=== PATIENT | male | born 1945 | race Caucasian/White ===

== ENCOUNTER → 2016-12-12 | Outpatient (CLI) | payer OTHER ==
[~2016-12-12] MED LIST: ASPEC81 PO; MEDLIST; METO50TA7 PO; SIMV20TA2 PO
[2016-12-12 10:45] LABS: BLOOD UREA NITROGEN 16 mg/dl (7-18); BUN/CREATININE RATIO 14.3 (10-20); CALCIUM 8.9 mg/dl (8.5-10.1); CARBON DIOXIDE 25 mmol/L (21-32); CHLORIDE 109 mmol/L (98-107); CHOLESTEROL 191 mg/dl (0-200); GLUCOSE 107 mg/dl (70-99); POTASSIUM 3.9 mmol/L (3.5-5.1); SODIUM 143 mmol/L (136-145); TRIGLYCERIDES 150 mg/dl (0-150); VERY LOW DENSITY LIPOPROT CALC 30 mg/dl
[2016-12-12 10:48] LABS: CHOLESTEROL/HDL RATIO 4.3; HDL CHOLESTEROL 44 mg/dl; LDL CHOLESTEROL CALCULATED 117 mg/dl
== END | disposition home or self-care (01) ==
LOC: C.LAB 09:06
PROVIDERS: ATTEND Internal Medicine Cardiovascular Disease
DX: I48.0 Paroxysmal atrial fibrillation (principal); I49.3 Ventricular premature depolarization

== ENCOUNTER → 2017-07-29 | Outpatient (CLI) | payer OTHER ==
[~2017-07-29] MED LIST changes: -METO50TA7 PO; +METO50TA8 PO
[2017-07-29 16:34] LABS: BASO % 0.7 %; BASO ABS # 0.04 K/uL (0-0.2); EOS % 9.1 %; EOS ABS # 0.53 K/uL (0-0.5); HEMATOCRIT 46.1 % (42-52); IG# 0.02 K/uL (0.00-0.02); LYMPH % 32.8 %; MEAN CELL VOLUME 92.9 fL (80-100); MEAN CORPUSCULAR HEMOGLOBIN 30.2 pg (25-34); MEAN CORPUSCULAR HGB CONC 32.5 g/dl (32-36); MEAN PLATELET VOLUME 11.4 fL (7.4-10.4); MONO % 10.3 %; NEUT % 46.8 %; NEUT ABS # 2.71 K/uL (1.4-6.5); PLATELET COUNT 171 K/uL (130-400); RED CELL DISTRIBUTION WIDTH SD 43.8 fL (36.4-46.3)
[2017-07-29 16:43] LABS: ALBUMIN 3.8 gm/dl (3.4-5.0); ALT/SGPT 34 U/L (12-78); AST/SGOT 21 U/L (15-37); BLOOD UREA NITROGEN 16 mg/dl (7-18); CALCIUM 9.3 mg/dl (8.5-10.1); CARBON DIOXIDE 26 mmol/L (21-32); CHOLESTEROL 207 mg/dl (0-200); CREATININE 1.06 mg/dl (0.60-1.40); GLUCOSE 90 mg/dl (70-99); POTASSIUM 4.1 mmol/L (3.5-5.1); SODIUM 139 mmol/L (136-145)
[2017-07-29 16:46] LABS: ALKALINE PHOSPHATASE 76 U/L (45-117); LDL CHOLESTEROL (DIRECT) 136 mg/dl
[2017-07-29 16:50] LABS: HEMOGLOBIN A1C 5.9 % (4.5-5.6)
== END | disposition home or self-care (01) ==
LOC: C.LAB 16:18
PROVIDERS: ATTEND Internal Medicine
DX: R73.9 Hyperglycemia, unspecified (principal); I48.91 Unspecified atrial fibrillation; R00.2 Palpitations; E78.5 Hyperlipidemia, unspecified; R30.0 Dysuria; Z11.59 Encounter for screening for other viral diseases; N42.89 Other specified disorders of prostate

== ENCOUNTER → 2017-08-31 | Outpatient (CLI) | payer OTHER | END | disposition home or self-care (01) | LOC: C.PATHSPEC 16:53 | PROVIDERS: ATTEND Urology | DX: R97.20 Elevated prostate specific antigen [PSA] (principal) ==

== ENCOUNTER → 2017-09-24 | Outpatient (CLI) | payer OTHER ==
[~2017-09-24] MED LIST changes: +AMOX500C3 PO; +ASPI325T45 PO; +MULT-190 PO; +OPTIRAY 320 IV PRN
--- NOTE | 2017-09-24 12:02 | DIAGNOSTIC IMAGING REPORT ---
CT ABD/PELVIS COMBO CLINICAL HISTORY: C61 Neoplasm of prostate, malignant NPR per Roopa Merlos @ [facility] Ref# COMPARISON STUDY: Prostate carcinoma TECHNIQUE: Unenhanced images were obtained through the abdomen and pelvis. The patient was injected with 50 cc of Optiray 320. Following a 5 minute delay, the patient is rescanned in a dynamic helical fashion during the additional menstruation of 69 cc of Optiray 320. A dose lowering technique was utilized adhering to the principles of ALARA. CT DOSE: 1189.91 mGycm FINDINGS: Lower chest: The heart is normal in size and configuration, without pericardial effusion. The lung bases and pleural spaces are clear. Liver: The contrast-enhanced liver is normal in size, contour, and attenuation. There is no intrahepatic biliary ductal dilatation. The hepatic veins and portal veins are patent. Gallbladder: Unremarkable. Spleen: Normal in size and attenuation. Pancreas: Unremarkable. Adrenal glands: Unremarkable. Kidneys: No renal, ureteral, or bladder calculi are visualized. There are no solid renal masses. No collecting system or ureteral lesions are visualized. Bowel: There are no transition zones indicate bowel obstruction. The appendix appears normal. There is colonic diverticulosis. There are no acute peridiverticular inflammatory changes. Apparent gastric wall thickening may be secondary to a nondistended stomach. Peritoneum: There is no intraperitoneal free air or abdominal ascites. Vasculature: The abdominal aorta is normal in course and caliber. There is a retroaortic left renal vein. Adenopathy: There is a borderline enlarged gastrohepatic ligament lymph node measuring 14 x 9 mm. There are no pathologically enlarged pelvic lymph nodes. Pelvic viscera: The prostate measures 48 mm transversely and contains calcifications. There is bladder wall thickening. Skeletal structures: No lytic or blastic osseous lesions are visualized. IMPRESSION: 1. No renal, ureteral, or bladder calculi identified 2. No renal masses identified 3. No evidence of pathologic pelvic lymphadenopathy. Borderline enlarged gastrohepatic ligament lymph node measuring 14 x 9 mm. 4. Circumferential bladder wall thickening 5. No lytic or blastic skeletal lesions identified Electronically signed by: Javier Carrera M.D. 09/24/2017 12:01 PM Dictated Date/Time: 09/24/2017 11:54 AM
--- NOTE | 2017-09-24 15:54 | DIAGNOSTIC IMAGING REPORT ---
BONE SCAN WHOLE BODY CLINICAL HISTORY: C61 Neoplasm of prostate, [id number] COMPARISON STUDY: CT scan dated 09/24/2017 FINDINGS: The patient was injected with 27.5 mCi of technetium 99m MDP. Three-hour delayed whole body images were acquired. Skeletal uptake appears symmetric. There are no foci of increased activity viewed as suspicious for skeletal metastasis. IMPRESSION: No evidence of skeletal metastasis. Electronically signed by: Javier Carrera M.D. 09/24/2017 3:52 PM Dictated Date/Time: 09/24/2017 3:51 PM
== END | disposition home or self-care (01) ==
LOC: C.CTS 11:22
PROVIDERS: ATTEND Urology
DX: C61 Malignant neoplasm of prostate (principal); N32.9 Bladder disorder, unspecified

== ENCOUNTER 2017-10-13 18:14 | Emergency (ER) | payer OTHER ==
[~2017-10-13] VITALS: Ht 180.3 cm; Wt 84.5 kg
[~2017-10-13 18:14] MED LIST changes: -ASPEC81 PO; +ASPECOTC PO; -ASPI325T45 PO; +CIPR-255 PO; +HYDR-5688 PO; -MEDLIST; -OPTIRAY 320 IV PRN; -SIMV20TA2 PO
[2017-10-13 18:23] VITALS: TEMP 36.9; Ht 180.3 cm; Wt 84.5 kg
[2017-10-13 20:33] LABS: BASO % 0.2 %; BASO ABS # 0.02 K/uL (0-0.2); EOS % 3.9 %; EOS ABS # 0.37 K/uL (0-0.5); HEMATOCRIT 42.5 % (42-52); HEMOGLOBIN 14.2 g/dL (14.0-18.0); IG# 0.01 K/uL (0.00-0.02); LYMPH % 26.7 %; LYMPH ABS # 2.54 K/uL (1.2-3.4); MEAN CELL VOLUME 92.4 fL (80-100); MEAN CORPUSCULAR HEMOGLOBIN 30.9 pg (25-34); MEAN CORPUSCULAR HGB CONC 33.4 g/dl (32-36); MEAN PLATELET VOLUME 10.2 fL (7.4-10.4); MONO % 9.6 %; MONO ABS # 0.91 K/uL (0.11-0.59); NEUT % 59.5 %; NEUT ABS # 5.65 K/uL (1.4-6.5); PLATELET COUNT 158 K/uL (130-400); RED CELL DISTRIBUTION WIDTH CV 12.8 % (11.5-14.5); RED CELL DISTRIBUTION WIDTH SD 42.8 fL (36.4-46.3)
[2017-10-13 20:53] LABS: ALBUMIN 3.9 gm/dl (3.4-5.0); CALCIUM 9.3 mg/dl (8.5-10.1); CREATININE 1.25 mg/dl (0.60-1.40); POTASSIUM 4.1 mmol/L (3.5-5.1)
[2017-10-13 20:56] LABS: TOTAL PROTEIN 7.4 gm/dl (6.4-8.2)
[2017-10-13] MEDS ORDERED: METO100T44 PO (20:56)
[2017-10-13] MEDS ORDERED: PHEN-876 PO (20:57)
--- NOTE | 2017-10-13 20:58 | EMERGENCY ROOM VISIT NOTE ---
History Report prepared by Sonny: Cherelle Jacome Under the Supervision of: Dr. Hector Bowen M.D. First contact with patient: 19:44 Chief Complaint: UNABLE TO VOID Stated Complaint: HAD CATHETER PUT IN SAT AM, BLADDER NOT EMPTYING Nursing Triage Summary: patient with calderon since this weekend when placed for inablitly to void. now feels as though his bladder is full. but the catheter is draining. is taking cipro and pyridium. History of Present Illness The patient is a 71 year old male who presents to the Emergency Room with complaints of an episode of inability to void starting this evening. The patient states that he was here 3 days ago and had a Calderon placed. He states that he hasn't eaten or drank much in the past few days, but started drinking his normal amount today. He states that he currently has the full feeling, but he is unsure if it is actually full or he is just paranoid. The patient notes that he tried to schedule a follow up urology appointment, but could not get a hold of them. The patient denies a spasm feeling, taking any pain medication, and abdominal pain. The patient notes that today was the first day he started taking the medications that they prescribed him Thursday. Source of History: patient Onset: this evening Position: other (global) Quality: other (inability to void, fullness) Timing: other (episode) Associated Symptoms: No abdominal pain Note: The patient denies feeling any spasms. Review of Systems See HPI for pertinent positives & negatives. A total of 10 systems reviewed and were otherwise negative. Past Medical & Surgical Medical Problems: (1) Prostate cancer Family History FHx: cancer Social History Smoking Status: Never Smoker Alcohol Use: occasionally Marital Status: single Housing Status: lives alone Occupation Status: employed Current/Historical Medications Scheduled Amoxicillin (Amoxil), 2,000 MG PO DIRECTED Aspirin (Aspirin), 325 MG PO DAILY Ciprofloxacin Hcl (Cipro), 500 MG PO BID Metoprolol Succ (Toprol Xl) (Toprol-Xl ), 100 MG PO QPM Ocuvite Preservision (Ocuvite Preservision), 2 TAB PO DAILY Phenazopyridine HCl (Pyridium), 200 MG PO TID Tamsulosin Hcl (Flomax), 0.4 MG PO DAILY Scheduled PRN Hydrocodone/Acetaminophen 5MG/325MG (Delta 5MG/325MG), 1 TABLET PO Q6 PRN for Pain Allergies Coded Allergies: Horse Serum Proteins (Verified Allergy, Unknown, 10/10/17) Physical Exam Vital Signs Date Time Temp Pulse Resp B/P (MAP) Pulse Ox O2 Delivery O2 Flow Rate FiO2 10/13/17 22:21 74 18 118/66 99 Room Air 10/13/17 21:39 73 18 116/60 99 Room Air 10/13/17 19:41 80 18 162/82 96 Room Air 10/13/17 18:23 36.9 81 20 148/79 96 Room Air Physical Exam GENERAL: Awake, alert, well-appearing, in no acute distress HENT: Normocephalic, atraumatic. Oropharynx unremarkable. EYES: Normal conjunctiva. Sclera non-icteric. NECK: Supple. No nuchal rigidity. FROM. No JVD. RESPIRATORY: Clear to auscultation. CARDIAC: Regular rate, normal rhythm. Extremities warm and well perfused. Pulses equal. ABDOMEN: Soft, non-distended. No tenderness to palpation. No rebound or guarding. No masses. Bedside Us shows the bladder decompressed with the Calderon in place. RECTAL: Deferred. MUSCULOSKELETAL: Chest examination reveals no tenderness. The back is symmetrical on inspection without obvious abnormality. There is no CVA tenderness to palpation. No joint edema. LOWER EXTREMITIES: Calves are equal size bilaterally and non-tender. No edema. No discoloration. NEURO: Normal sensorium. No sensory or motor deficits noted. SKIN: No rash or jaundice noted. Medical Decision & Procedures ER Provider Diagnostic Interpretation: Radiology results as stated below per my review and radiologist interpretation: CT SCAN OF THE ABDOMEN AND PELVIS WITHOUT CONTRAST CLINICAL HISTORY: Pelvic pain/bladder fullness. PROSTATE CARCINOMA COMPARISON STUDY: 09/24/2017 TECHNIQUE: CT scan of the abdomen and pelvis was performed from the lung bases to the proximal femurs. Images are reviewed in the axial, sagittal, and coronal planes. IV contrast was not administered for this examination. A dose lowering technique was utilized adhering to the principles of ALARA. CT DOSE: 672.53 mGy.cm FINDINGS: Lower chest: The heart is normal in size and configuration, without pericardial effusion. The lung bases and pleural spaces are clear. Liver: The unenhanced liver is normal in size, contour, and attenuation. There is no intrahepatic biliary ductal dilatation. Gallbladder: Unremarkable. Spleen: Normal in size and attenuation. Pancreas: Unremarkable. Adrenal glands: Unremarkable. Kidneys: No renal, ureteral, or bladder calculi are visualized. Bowel: There are no transition zones indicate bowel obstruction. There is colonic diverticulosis. There are no acute peridiverticular inflammatory changes. There are no findings to indicate acute appendicitis. Peritoneum: There is no intraperitoneal free air or abdominal ascites. Vasculature: The abdominal aorta is normal in course and caliber. Adenopathy: There is a gastrohepatic ligament lymph node the upper limits of normal in size. This appears minimally smaller than on the preceding examination. Pelvic viscera: There is an indwelling Calderon catheter. There is bladder wall thickening. There is minimal perivesical stranding. There are prostatic calcifications. Skeletal structures: No destructive osseous lesions are seen. IMPRESSION: 1. No evidence of bowel obstruction. No evidence of free air 2. No renal, ureteral, or bladder calculi identified 3. Indwelling Calderon catheter. Bladder wall thickening. Electronically signed by: Javier Carrera M.D. 10/13/2017 8:57 PM Dictated Date/Time: 10/13/2017 8:53 PM Laboratory Results 10/13/17 20:18 Red Blood Count 4.60, Mean Corpuscular Volume 92.4, Mean Corpuscular Hemoglobin 30.9, Mean Corpuscular Hemoglobin Concent 33.4, Mean Platelet Volume 10.2, Neutrophils (%) (Auto) 59.5, Lymphocytes (%) (Auto) 26.7, Monocytes (%) (Auto) 9.6, Eosinophils (%) (Auto) 3.9, Basophils (%) (Auto) 0.2, Neutrophils # (Auto) 5.65, Lymphocytes # (Auto) 2.54, Monocytes # (Auto) 0.91, Eosinophils # (Auto) 0.37, Basophils # (Auto) 0.02 10/13/17 20:18 Test 10/13/17 20:18 10/13/17 20:20 White Blood Count 9.50 K/uL (4.8-10.8) Red Blood Count 4.60 M/uL (4.7-6.1) Hemoglobin 14.2 g/dL (14.0-18.0) Hematocrit 42.5 % (42-52) Mean Corpuscular Volume 92.4 fL (80-100) Mean Corpuscular Hemoglobin 30.9 pg (25-34) Mean Corpuscular Hemoglobin Concent 33.4 g/dl (32-36) Platelet Count 158 K/uL (130-400) Mean Platelet Volume 10.2 fL (7.4-10.4) Neutrophils (%) (Auto) 59.5 % Lymphocytes (%) (Auto) 26.7 % Monocytes (%) (Auto) 9.6 % Eosinophils (%) (Auto) 3.9 % Basophils (%) (Auto) 0.2 % Neutrophils # (Auto) 5.65 K/uL (1.4-6.5) Lymphocytes # (Auto) 2.54 K/uL (1.2-3.4) Monocytes # (Auto) 0.91 K/uL (0.11-0.59) Eosinophils # (Auto) 0.37 K/uL (0-0.5) Basophils # (Auto) 0.02 K/uL (0-0.2) RDW Standard Deviation 42.8 fL (36.4-46.3) RDW Coefficient of Variation 12.8 % (11.5-14.5) Immature Granulocyte % (Auto) 0.1 % Immature Granulocyte # (Auto) 0.01 K/uL (0.00-0.02) Anion Gap 7.0 mmol/L (3-11) Est Creatinine Clear Calc Drug Dose 59.4 ml/min Estimated GFR () 67.7 Estimated GFR (Non- 58.4 BUN/Creatinine Ratio 15.0 (10-20) Calcium Level 9.3 mg/dl (8.5-10.1) Total Bilirubin 0.6 mg/dl (0.2-1) Direct Bilirubin 0.1 mg/dl (0-0.2) Aspartate Amino Transf (AST/SGOT) 23 U/L (15-37) Alanine Aminotransferase (ALT/SGPT) 29 U/L (12-78) Alkaline Phosphatase 74 U/L (45-117) Total Protein 7.4 gm/dl (6.4-8.2) Albumin 3.9 gm/dl (3.4-5.0) Lipase 122 U/L (73-393) Urine Color ORANGE Urine Appearance CLEAR (CLEAR) Urine pH (4.5-7.5) Urine Specific Wray 1.023 (1.000-1.030) Urine Protein NEG (NEG) Urine Glucose (UA) (NEG) Urine Ketones (NEG) Urine Occult Blood (NEG) Urine Nitrite (NEG) Urine Bilirubin (NEG) Urine Urobilinogen (NEG) Urine Leukocyte Esterase (NEG) Urine WBC (Auto) /hpf (0-5) Urine RBC (Auto) /hpf (0-4) Urine Epithelial Cells (Auto) /lpf (0-5) Urine Bacteria (Auto) (NEG) Urine RBC >30 /hpf (0-4) Urine WBC 5-10 /hpf (0-5) Urine Epithelial Cells 0-5 /lpf (0-5) Urine Bacteria 2+ (NEG) Labs reviewed by ED physician. Medications Administered Medications (Trade) Dose Ordered Sig/Lisa Route Start Time Stop Time Status Last Admin Dose Admin Tamsulosin HCl (Flomax Cap) 0.4 mg NOW STAT PO 10/13/17 21:58 10/13/17 21:59 DC 10/13/17 22:05 0.4 MG ED Course 1945: Past medical records reviewed. The patient was evaluated in room A9B. A complete history and physical examination was performed. 2144: Upon reexamination the patient is resting comfortably. I discussed results and treatment plan with the patient. He verbalizes agreement and understanding. The patient is ready for discharge. 2157: Ordered Flomax Cap 0.4 mg PO. Medical Decision This is a 71-year-old male who presents the emergency department over concerns that he feels like he has to urinate although he has a Calderon in place. I will note that the Calderon is draining. Bedside ultrasound shows a decompressed bladder. I will also note the patient did not start taking his antibiotics that he was prescribed until today. He has also not followed up yet with urology. Using shared medical decision making with the patient the patient asked for a CAT scan of the abdomen and pelvis as well as laboratory work. He does not have an elevation in his white blood cell count and is afebrile here. He also has a normal liver and lipase and renal profile. CAT scan of the abdomen pelvis does not show any acute process and I feel he can be safely discharged home. Strongly encouraged him to continue his Cipro and I will place the patient on Flomax until his follow-up with urology. Patient was in agreement with the treatment plan. Medication Reconcilliation Current Medication List: was personally reviewed by me Blood Pressure Screening Patient's blood pressure: Elevated blood pressure Blood pressure disposition: Elevated BP felt to be situational Impression Primary Impression: Bladder spasm Scribe Attestation The scribe's documentation has been prepared under my direction and personally reviewed by me in its entirety. I confirm that the note above accurately reflects all work, treatment, procedures, and medical decision making performed by me. Departure Information Dispostion Home / Self-Care Prescriptions Tamsulosin Hcl (FLOMAX) 0.4 Mg Cap 0.4 MG PO DAILY for 10 Days, #10 CAP Prov: Hector Bowen MD 10/13/17 Referrals Nelson Acosta M.D. (PCP) Forms HOME CARE DOCUMENTATION FORM, IMPORTANT VISIT INFORMATION, WORK / SCHOOL INSTRUCTIONS Patient Instructions My [facility] Additional Instructions Follow up with Dr Duran's office Continue Cipro and Flomax You have been examined and treated today on an emergency basis only. This is not a substitute for, or an effort to provide, complete comprehensive medical care. It is impossible to recognize and treat all injuries or illnesses in a single emergency department visit. It is therefore important that you follow up closely with Dr Brittaney Beard. Call as soon as possible for an appointment. Thank you for your time and consideration. I look forward to speaking with you again soon. Please don't hesitate to call us if you have any questions.
[2017-10-13] MEDS ORDERED: TAMSULOSIN HCL 0.4 MG CAP PO STA (21:58)
[2017-10-13] MEDS ORDERED: TAMS0.4C38 PO (21:59)
[2017-10-13 22:21] VITALS: BP 118/66; PULSE 74; O2SAT 99
[2017-10-20] MEDS ORDERED: FLM4 PO (09:49)
== END 2017-10-13 22:22 | disposition home or self-care (01) ==
LOC: C.EDB 18:16 → C.EDA 22:22
DX: R33.9 Retention of urine, unspecified (principal); N32.89 Other specified disorders of bladder; C61 Malignant neoplasm of prostate; Z79.82 Long term (current) use of aspirin; Z79.899 Other long term (current) drug therapy

== ENCOUNTER → 2017-10-16 | Outpatient (CLI) | payer OTHER ==
[~2017-10-16] MED LIST changes: +FLM4 PO; +METO100T44 PO; -METO50TA8 PO; +PHEN-876 PO; +TAMS0.4C38 PO
[2017-10-16 12:37] LABS: BASO % 0.5 %; BASO ABS # 0.03 K/uL (0-0.2); EOS % 5.1 %; EOS ABS # 0.29 K/uL (0-0.5); HEMATOCRIT 42.5 % (42-52); HEMOGLOBIN 14.3 g/dL (14.0-18.0); IG# 0.01 K/uL (0.00-0.02); LYMPH % 27.5 %; LYMPH ABS # 1.56 K/uL (1.2-3.4); MEAN CORPUSCULAR HEMOGLOBIN 31.3 pg (25-34); MEAN CORPUSCULAR HGB CONC 33.6 g/dl (32-36); MONO % 10.4 %; MONO ABS # 0.59 K/uL (0.11-0.59); NEUT % 56.3 %; PLATELET COUNT 171 K/uL (130-400); RED CELL DISTRIBUTION WIDTH CV 12.5 % (11.5-14.5); RED CELL DISTRIBUTION WIDTH SD 42.2 fL (36.4-46.3); WHITE BLOOD COUNT 5.68 K/uL (4.8-10.8)
[2017-10-16 12:50] LABS: BLOOD UREA NITROGEN 14 mg/dl (7-18); CREATININE 1.13 mg/dl (0.60-1.40); GLUCOSE 99 mg/dl (70-99)
[2017-10-16 12:51] LABS: CALCIUM 9.2 mg/dl (8.5-10.1); CARBON DIOXIDE 27 mmol/L (21-32); POTASSIUM 4.3 mmol/L (3.5-5.1); SODIUM 139 mmol/L (136-145)
== END | disposition home or self-care (01) ==
LOC: C.LAB 10:47
PROVIDERS: ATTEND Urology
DX: C61 Malignant neoplasm of prostate (principal)

== ENCOUNTER → 2017-10-16 | Outpatient (CLI) | payer OTHER ==
--- NOTE | 2017-10-16 10:23 | DIAGNOSTIC IMAGING REPORT ---
CHEST 2 VIEWS ROUTINE HISTORY: 71 years-old Male C61 neoplasm of prostate. COMPARISON: Chest radiograph 01/04/2010, CT abdomen and pelvis 10/13/2017 TECHNIQUE: PA and lateral views of the chest FINDINGS: Prior median sternotomy with prosthetic aortic valve. No pneumothorax, pleural effusion, focal airspace consolidation or overt pulmonary edema. Degenerative changes of the spine and shoulders. IMPRESSION: No acute process. The above report was generated using voice recognition software. It may contain grammatical, syntax or spelling errors. Electronically signed by: Bogdan Francis M.D. 10/16/2017 10:22 AM Dictated Date/Time: 10/16/2017 10:19 AM
== END | disposition home or self-care (01) ==
LOC: C.RAD1850 10:06
PROVIDERS: ATTEND Urology
DX: C61 Malignant neoplasm of prostate (principal)

== ENCOUNTER → 2017-10-16 | Outpatient (CLI) | payer OTHER | END | disposition home or self-care (01) | LOC: C.LABSPEC 14:55 | PROVIDERS: ATTEND Urology | DX: C61 Malignant neoplasm of prostate (principal) ==

== ENCOUNTER → 2018-02-05 | Outpatient (CLI) | payer OTHER ==
[~2018-02-05] MED LIST changes: +ACET300T3 PO; -FLM4 PO; -HYDR-5688 PO; -PHEN-876 PO; -TAMS0.4C38 PO
== END | disposition home or self-care (01) ==
LOC: C.LAB 08:49
PROVIDERS: ATTEND Urology
DX: C61 Malignant neoplasm of prostate (principal)